=== PATIENT | female | born 1960 | race Caucasian/White ===

== ENCOUNTER 2022-04-25 13:24 | Emergency (ER) | payer MEDICARE, OTHER ==
[~2022-04-25] VITALS: Ht 172.7 cm; Wt 55.3 kg
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
--- NOTE | 2022-04-25 13:58 | NUR ---
EMT AT BEDSIDE FOR WOUND IRRIGATION.
--- NOTE | 2022-04-25 14:09 | NUR ---
DR CALDERÓN AT BEDSIDE FOR EVAL
[2022-04-25] MEDS ORDERED: LIDOCAINE 0.5%-EPI 1:200,000 50 ML VIAL ONE (14:10)
[2022-04-25] MEDS ORDERED: LIDOCAINE 1%-EPI 1:100,000 20 ML VIAL ONE ×2 (14:23→14:45)
[2022-04-25] MEDS ORDERED: ACETAMINOPHEN 325 MG TABLET ONE (14:27)
--- NOTE | 2022-04-25 14:29 | NUR ---
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
[2022-04-25] MEDS ORDERED: ACETAMINOPHEN 325 MG TABLET PO ONE (14:30)
[2022-04-25] MEDS ORDERED: LIDOCAINE 1%-EPI 1:100,000 20 ML VIAL TP ONE (14:30)
[2022-04-25] MEDS ORDERED: TDAP [DIPH/PERTUSSIS/TET] 0.5 ML VIAL IM ONE ×2 (14:45→15:00)
--- NOTE | 2022-04-25 14:54 | NUR ---
PT TAKEN TO CT VIA [facility]ERY[facility]
--- NOTE | 2022-04-25 15:01 | NUR ---
TDAP GIVEN IM RIGHT DELTOID.
[2022-04-25] MEDS ORDERED: IBUP-1953 PO (16:10)
--- NOTE | 2022-04-25 16:17 | NUR ---
Patient discharged to home in stable condition. Written and verbal after care instructions given. Patient verbalizes understanding of instruction.
[2022-04-25 16:19] VITALS: BP 162/88
== END 2022-04-25 16:21 | disposition home or self-care (01) ==
LOC: ER 13:26
DX: S01.81XA Laceration without foreign body of other part of head, initial encounter (principal); W01.0XXA Fall on same level from slipping, tripping and stumbling without subsequent striking against object, initial encounter; Y93.E1 Activity, personal bathing and showering; Y92.89 Other specified places as the place of occurrence of the external cause; Y99.8 Other external cause status
CPT/HCPCS: 99284; 70450; 12011; 90471; 90715; A6403; J3490 ×2